=== PATIENT | female | born 2000 ===

== ENCOUNTER 2019-07-24 11:27 | Emergency (ER) | payer OTHER ==
[2019-07-24 11:53] VITALS: BP 118/77
--- NOTE | 2019-07-24 12:25 | UC ---
Back Pain HPI - HPI Summary HPI Summary: 19 year old female wiht no PMH presents with lower back pain x 1 week. Patient states has had lower back pain for years, worse over the summer. Intermittently will have numbness/ tingling to left lateral thigh. No bowel/ bladder loss, no weakness, strength decrease. - History of Current Complaint Chief Complaint: UCBackPain Stated Complaint: BACK PAIN Time Seen by Provider: 07/24/19 12:05 Hx Obtained From: Patient Hx Last Menstrual Period: 07/10/19 ?: No Onset/Duration: Gradual Onset, Lasting Weeks Timing: Intermittent Severity Currently: Mild Pain Intensity: 2 Pain Scale Used: 0-10 Numeric Back Pain: Is Discrete @ - lower back - Allergies/Home Medications Allergies/Adverse Reactions: Allergies Allergy/AdvReac Type Severity Reaction Status Date / Time No Known Allergies Allergy Verified 08/01/19 15:18 Home Medications: Home Medications Acetaminophen [Acetaminophen Extra Strength] 1,000 mg PO ONCE 07/24/19 [History Confirmed 07/24/19] PMH/Surg Hx/FS Hx/Imm Hx - Surgical History Surgical History: None - Social History Alcohol Use: None Substance Use Type: None Smoking Status (MU): Never Smoked Tobacco Review of Systems All Other Systems Reviewed And Are Negative: Yes Constitutional: Positive: Fatigue Musculoskeletal: Positive: Arthralgia, Edema, Myalgia Is Patient Immunocompromised?: No Physical Exam Triage Information Reviewed: Yes Appearance: Well-Appearing, No Pain Distress, Well-Nourished Vital Signs: Initial Vital Signs Temp 98.1 F 07/24/19 11:46 Pulse 66 07/24/19 11:46 Resp 16 07/24/19 11:46 BP 118/77 07/24/19 11:46 Pulse Ox 100 07/24/19 11:46 Vital Signs Reviewed: Yes Eyes: Positive: Conjunctiva Clear ENT: Positive: Hearing grossly normal Respiratory: Positive: Chest non-tender, Lungs clear, Normal breath sounds, No respiratory distress. Negative: Crackles, Rhonchi, Stridor, Wheezing Cardiovascular: Positive: RRR, No Murmur Musculoskeletal: Positive: Strength Intact - GOod FF, side to side movements, extention at hip. TTP over soft tissues lower back. Neurological: Positive: Alert, Other: - SITLT over lateral left thigh, b/l LEs + DF?PF, able to walk heel/ toe, run heel up gregorio b/l, stand on one foot b/l, neg rhomberg. patellar reflexes 2+ b/l. Psychological: Positive: Normal Response To Family Skin: Negative: Rashes, Breakdown Back Pain Course/Dx - Course Course Of Treatment: Lumbarsacral X-ray negative. Lumbago- - Take an anti-inflammatory as needed for 5 day after misael pain starts. ---- Naproxen: take 500mg twice daily ---OR--- Ibuprofen 600mg every 6-8 hours for 5-7 days when having pain to decrease inflammation - Physical therapy script - Follow up with Georgina for PT and with PCP to monitor improvement. - Differential Dx/Diagnosis Differential Diagnosis/HQI/PQRI: Fracture, Strain, Sprain Provider Diagnosis: Lumbago Discharge ED - Sign-Out/Discharge Documenting (check all that apply): Patient Departure All imaging exams completed and their final reports reviewed: Yes - Discharge Plan Condition: Good Disposition: HOME Prescriptions: Naproxen [Naproxen 500 mg tab] 500 mg PO BID #60 tablet. Patient Education Materials: Low Back Strain (ED), Lower Back Exercises (ED), Core Strengthening Exercises (ED) Referrals: [facility] [Primary Care Provider] - Additional Instructions: Lumbago- - Take an anti-inflammatory as needed for 5 day after misael pain starts. ---- Naproxen: take 500mg twice daily ---OR--- Ibuprofen 600mg every 6-8 hours for 5-7 days when having pain to decrease inflammation - Physical therapy script - Follow up with Georgina for PT and with PCP to monitor improvement. - Billing Disposition and Condition Condition: GOOD Disposition: Home
== END 2019-07-24 13:30 | disposition home or self-care (01) ==
LOC: UCEAST 11:27
DX: M54.5 Low back pain (principal)
CPT/HCPCS: 72110; 99212; G0463